=== PATIENT | male | born 1985 | race Caucasian/White ===

== ENCOUNTER 2019-04-17 22:48 | Emergency (ER) | payer SELFPAY ==
[2019-04-18] MEDS ORDERED: Cephalexin CAP* 500 MG PO ONE (01:15)
--- NOTE | 2019-04-18 01:16 | ED ---
Lower Extremity - HPI Summary HPI Summary: Pt is a 33 y/o M presenting to the ED with a chief skin complaint of his R calf. He states he had an ingrown hair that he tried to take out, but it reacted poorly and he now believes it is infected. He denies fever. He reports warmth, edema, erythema, and sensitivity to the area. NKDA. - History of Current Complaint Chief Complaint: EDExtremityLower Stated Complaint: POSS INFECTION RT LEG PER PT Time Seen by Provider: 04/18/19 01:08 Hx Obtained From: Patient Mechanism Of Injury: Unknown Onset of Pain: Hours Onset/Duration: Still Present Severity Initially: Moderate Severity Currently: Moderate Pain Intensity: 5 Pain Scale Used: 0-10 Numeric Timing: Constant, Lasting Hours Location: Is Discrete @ - R calf Character Of Pain: Burning Associated Signs And Symptoms: Positive: Swelling, Redness. Negative: Fever Aggravating Factor(s): Other - touch Alleviating Factor(s): Nothing Able to Bear Weight: Yes - Allergies/Home Medications Allergies/Adverse Reactions: Allergies Allergy/AdvReac Type Severity Reaction Status Date / Time No Known Allergies Allergy Verified 04/17/19 22:53 PMH/Surg Hx/FS Hx/Imm Hx Previously Healthy: Yes Endocrine/Hematology History: Denies: Hx Diabetes Cardiovascular History: Denies: Hx Hypertension, Hx Pacemaker/ICD History: Denies: Hx Renal Disease Sensory History: Denies: Hx Hearing Aid Psychiatric History: Denies: Hx Panic Disorder - Surgical History Surgery Procedure, Year, and Place: maxilofacial - JAW REPAIRED W/ PLATE & PIN - Rt SIDE Infectious Disease History: No Infectious Disease History: Denies: Traveled Outside the [place] in Last 30 Days - Family History Known Family History: Negative: Diabetes - Social History Alcohol Use: Daily Alcohol Amount: 3 drinks daily Hx Substance Use: Yes Substance Use Type: Reports: Marijuana Substance Use Comment - Amount & Last Used: once a week Hx Tobacco Use: Yes Smoking Status (MU): Current Some Day Smoker Review of Systems Negative: Fever Positive: Edema Positive: Other - erythema, sensitivity to R calf All Other Systems Reviewed And Are Negative: Yes Physical Exam - Summary Physical Exam Summary: Appearance: Well-appearing, Well-nourished, lying in bed comfortably Skin: Warm, dry, no obvious rash Eyes: sclera anicteric, no conjunctival pallor ENT: mucous membranes moist, pharynx appears normal Neck: Supple, nontender Respiratory: Clear to auscultation, no signs of respiratory distress Cardiovascular: Normal S1, S2. No murmurs. Normal distal pulses in tibial and radial bilaterally. Abdomen: Soft, nontender, normal active bowel sounds present Musculoskeletal: Normal, Strength/ROM Intact Neurological: A&Ox3, awake and alert, mentation is normal, speech is fluent and appropriate Psychiatric: affect is normal, does not appear anxious or depressed Triage Information Reviewed: Yes Vital Signs On Initial Exam: Initial Vitals Temp Pulse Resp BP Pulse Ox 98.1 F 94 16 143/73 98 04/17/19 22:50 04/17/19 22:50 04/17/19 22:50 04/17/19 22:50 04/17/19 22:50 Vital Signs Reviewed: Yes Diagnostics - Vital Signs Vital Signs Temp Pulse Resp BP Pulse Ox 04/17/19 22:50 98.1 F 94 16 143/73 98 - Laboratory Lab Statement: Any lab studies that have been ordered have been reviewed, and results considered in the medical decision making process. Lower Extremity Course/Dx - Course Course Of Treatment: Pt is a 33 y/o M presenting to the ED with a chief skin complaint of his R calf. He states he had an ingrown hair that he tried to take out, but it reacted poorly and he now believes it is infected. He denies fever. He reports warmth, edema, erythema, and sensitivity to the area. On exam, there is an area of erythema, edema, and induration on the R mid-lateral leg with a central small area of eschar c/w a papule that is slightly ulcerated. There is no fluctuance or lymphangitic streaking. Pt will be started on Keflex in the ED and sent home with dx of cellulitis with strict return precautions given. He is stable and agreeable with this plan. - Diagnoses Provider Diagnoses: Cellulitis Discharge ED - Sign-Out/Discharge Documenting (check all that apply): Patient Departure Patient Received Moderate/Deep Sedation with Procedure: No - Discharge Plan Condition: Good Disposition: HOME Prescriptions: Cephalexin CAP* [Keflex CAP*] 500 mg PO QID #40 cap Patient Education Materials: Cellulitis (ED) Referrals: [facility] [Outside] - 3 Days (if not starting to improve) - Billing Disposition and Condition Condition: GOOD Disposition: Home - Attestation Statements Document Initiated by Nilayibalyssa: Yes Documenting Scribe: Jesika Pat Provider For Whom Azalea is Documenting (Include Credential): Jacek Rico MD. Scribe Attestation: Jesika Downing, scribed for Jacek Rico MD. on 04/18/19 at 2156. Scribe Documentation Reviewed: Yes Provider Attestation: The documentation as recorded by the Jesika lamb accurately reflects the service I personally performed and the decisions made by me, Jacek Rico MD. Status of Scribe Document: Viewed
[2019-04-18 01:36] VITALS: BP 137/68
== END 2019-04-18 01:37 | disposition home or self-care (01) ==
LOC: ED 22:48
DX: L03.115 Cellulitis of right lower limb (principal); Z72.0 Tobacco use; L53.9 Erythematous condition, unspecified
CPT/HCPCS: 99281; A9270-GY

== ENCOUNTER 2019-04-21 17:15 | Emergency (ER) | payer SELFPAY ==
[2019-04-21 19:19] LABS: ABS Basophils 0.1 10^3/ul (0-0.2); ABS Eosinophils 0.2 10^3/ul (0-0.6); ABS Neutrophils 5.6 10^3/ul (1.5-7.7); Eosinophil % 2.5 %; Hematocrit 43 % (42-52); Hemoglobin 14.7 g/dL (14.0-18.0); Lymphocyte % 22.8 %; Mean Corpuscular HGB Conc 35 g/dL (31-36); Mean Corpuscular Hemoglobin 32 pg (27-31); Mean Corpuscular Volume 91 fL (80-94); Mean Platelet Volume 9.1 fL (7.4-10.4); Nucleated Red Blood Cells % 0.1; Platelet Count 244 10^3/uL (150-450); Red Blood Count 4.66 10^6 /uL (4.18-5.48); Red Cell Distribution Width 14 % (10-15)
[2019-04-21 19:30] LABS: Albumin 4.1 g/dL (3.2-5.2); Albumin/Globulin Ratio 1.6 (1-3); BUN/Creatinine Ratio 16.7 (8-20); C Reactive Protein 14.94 mg/L (<8.01); Calcium 9.4 mg/dL (8.6-10.3); EGFR African American 68.4 (>60); EGFR Non-African American 56.5 (>60); Globulin 2.6 g/dL (2-4); Total Bilirubin 0.3 mg/dL (0.2-1.0); Total Protein 6.7 g/dL (6.4-8.9)
[2019-04-21 19:47] LABS: Potassium 4.2 mmol/L (3.5-5.0)
[2019-04-21 20:48] LABS: Erythrocyte Sed Rate 12 mm/Hr (0-14)
--- NOTE | 2019-04-21 20:54 | ED ---
Skin Complaint - HPI Summary HPI Summary: Patient complains of redness, swelling and pain to right lateral calf 3 days. Patient was seen here 2 days ago was started on Keflex. Patient states no improvement, symptoms are getting worse. Denies fever, cough, sore throat, CP, SOB, N/V/V abdominal pain, change in urine, change in BM. Denies IV drug use. Medical history is none. - History of Current Complaint Chief Complaint: EDRashSkinAbscess Time Seen by Provider: 04/21/19 20:38 Stated Complaint: INFECTION IS GETTING WORSE PER PT Hx Obtained From: Patient Onset/Duration: Started Days Ago Skin Exposure Onset/Duration: Days Ago Timing: Constant Onset Severity: Moderate Current Severity: Mild Pain Intensity: 0 Pain Scale Used: 0-10 Numeric Skin Location: Discrete Aggravating Symptom(s): Touch Alleviating Symptom(s): Nothing Associated Signs & Symptoms: Negative - Allergy/Home Medications Allergies/Adverse Reactions: Allergies Allergy/AdvReac Type Severity Reaction Status Date / Time No Known Allergies Allergy Verified 04/17/19 22:53 PMH/Surg Hx/FS Hx/Imm Hx Endocrine/Hematology History: Denies: Hx Diabetes Cardiovascular History: Denies: Hx Hypertension, Hx Pacemaker/ICD History: Denies: Hx Dialysis, Hx Renal Disease Sensory History: Denies: Hx Hearing Aid Opthamlomology History: Denies: Hx Eye Injury EENT History: Denies: Hx Deafness Neurological History: Denies: Hx Dementia Psychiatric History: Denies: Hx Panic Disorder - Surgical History Surgery Procedure, Year, and Place: maxilofacial - JAW REPAIRED W/ PLATE & PIN - Rt SIDE Infectious Disease History: No Infectious Disease History: Denies: Traveled Outside the [place] in Last 30 Days - Family History Known Family History: Negative: Diabetes - Social History Alcohol Use: Daily Alcohol Amount: 3 drinks daily Hx Substance Use: Yes Substance Use Type: Reports: Marijuana Substance Use Comment - Amount & Last Used: once a week Hx Tobacco Use: Yes Smoking Status (MU): Current Some Day Smoker Review of Systems Constitutional: Negative Eyes: Negative ENT: Negative Cardiovascular: Negative Respiratory: Negative Gastrointestinal: Negative Genitourinary: Negative Musculoskeletal: Negative Skin: Other Neurological: Negative Psychological: Normal All Other Systems Reviewed And Are Negative: Yes Physical Exam - Summary Physical Exam Summary: Apical abscess to proximal right lateral calf distal to knee. Full range of motion of knee. Triage Information Reviewed: Yes Vital Signs On Initial Exam: Initial Vitals Temp Pulse Resp BP Pulse Ox 98.7 F 85 18 130/76 96 04/21/19 17:26 04/21/19 17:26 04/21/19 17:26 04/21/19 17:26 04/21/19 17:26 Vital Signs Reviewed: Yes Appearance: Positive: Well-Appearing Skin: Positive: Warm Head/Face: Positive: Normal Head/Face Inspection Eyes: Positive: Normal Neck: Positive: Supple Respiratory/Lung Sounds: Positive: Clear to Auscultation Cardiovascular: Positive: Normal Abdomen Description: Positive: Nontender Musculoskeletal: Positive: Normal Neurological: Positive: Normal Psychiatric: Positive: Normal AVPU Assessment: Alert - [place] Coma Scale Best Eye Response: 4 - Spontaneous Best Motor Response: 6 - Obeys Commands Best Verbal Response: 5 - Oriented Coma Scale Total: 15 Diagnostics - Vital Signs Vital Signs Temp Pulse Resp BP Pulse Ox 04/21/19 19:29 98.3 F 64 18 157/91 99 04/21/19 17:26 98.7 F 85 18 130/76 96 - Laboratory Lab Results: Lab Results 04/21/19 04/21/19 Range/Units 19:04 19:04 WBC 9.0 (3.5-10.8) 10^3/uL RBC 4.66 (4.18-5.48) 10^6 /uL Hgb 14.7 (14.0-18.0) g/dL Hct 43 (42-52) % MCV 91 (80-94) fL MCH 32 H (27-31) pg MCHC 35 (31-36) g/dL RDW 14 (10-15) % Plt Count 244 (150-450) 10^3/uL MPV 9.1 (7.4-10.4) fL Neut % (Auto) 62.6 % Lymph % (Auto) 22.8 % [place] % (Auto) 11.4 % Eos % (Auto) 2.5 % Baso % (Auto) 0.7 % Absolute Neuts (auto) 5.6 (1.5-7.7) 10^3/ul Absolute Lymphs (auto) 2.0 (1.0-4.8) 10^3/ul Absolute Monos (auto) 1.0 H (0-0.8) 10^3/ul Absolute Eos (auto) 0.2 (0-0.6) 10^3/ul Absolute Basos (auto) 0.1 (0-0.2) 10^3/ul Absolute Nucleated RBC 0.0 10^3/ul Nucleated RBC % 0.1 ESR 12 (0-14) mm/Hr Sodium 138 (135-145) mmol/L Potassium 4.2 (3.5-5.0) mmol/L Chloride 105 (101-111) mmol/L Carbon Dioxide 27 (22-32) mmol/L Anion Gap 6 (2-11) mmol/L BUN 24 (6-24) mg/dL Creatinine 1.44 H (0.67-1.17) mg/dL Est GFR ( Amer) 68.4 (>60) Est GFR (Non-Af Amer) 56.5 (>60) BUN/Creatinine Ratio 16.7 (8-20) Glucose 116 H (70-100) mg/dL Calcium 9.4 (8.6-10.3) mg/dL Total Bilirubin 0.30 (0.2-1.0) mg/dL AST 22 (13-39) U/L ALT 18 (7-52) U/L Alkaline Phosphatase 85 (34-104) U/L C-Reactive Protein 14.94 H (<8.01) mg/L Total Protein 6.7 (6.4-8.9) g/dL Albumin 4.1 (3.2-5.2) g/dL Globulin 2.6 (2-4) g/dL Albumin/Globulin Ratio 1.6 (1-3) Result Diagrams: 04/21/19 19:04 04/21/19 19:04 Lab Statement: Any lab studies that have been ordered have been reviewed, and results considered in the medical decision making process. Course/Dx - Course Course Of Treatment: Patient complains of redness, swelling and pain to right lateral calf 3 days. Patient was seen here 2 days ago was started on Keflex. Patient states no improvement, symptoms are getting worse. Denies fever, cough , sore throat, CP, SOB, N/V/V abdominal pain, change in urine, change in BM. Denies IV drug use. Medical history is none. Vital signs within normal limits. I and D performed. Wound packed. Patient started on Bactrim. - Diagnoses Provider Diagnoses: Abscess, Cellulitis Discharge ED - Sign-Out/Discharge Documenting (check all that apply): Patient Departure Patient Received Moderate/Deep Sedation with Procedure: No - Discharge Plan Condition: Stable Disposition: HOME Prescriptions: Sulfamethox/Trimethoprim DS* [Bactrim DS 800/160 TAB*] 1 tab PO BID 10 Days #20 tab Patient Education Materials: Cellulitis (ED), Abscess (ED) Referrals: No Primary Care Phys,NOPCP [Primary Care Provider] - Additional Instructions: Stop taking Keflex. Start taking Bactrim as directed. Use warm compresses to help drain abscess. Keep incision open to facilitate draining. Do not submerge underwater for 10 days. Follow-up in 2 days at primary care, urgent care or here at the ED for wound check and packing check. Return to the ED for any new or worsening symptoms. - Billing Disposition and Condition Condition: STABLE Disposition: Home - Attestation Statements Provider Attestation: I was available for consult. This patient was seen by the TRUNG. The patient was not presented to, seen by, or examined by me. Jose Daniel Moss MD
[2019-04-21] MEDS: Sulfamethox/Trimethoprim DS 800/160* TAB PO ONE (21:48)
[2019-04-21 21:54] VITALS: BP 126/77
--- NOTE | 2019-04-24 06:07 | PN ---
Progress Note - Progress Note Date of Service: 04/21/19 Note: Wound culture grew MRSA positive Pt placed on Bactrim prior to discharge Nothing further at this time.
== END 2019-04-21 21:53 | disposition home or self-care (01) ==
LOC: ED 17:15
DX: L02.415 Cutaneous abscess of right lower limb (principal); L03.115 Cellulitis of right lower limb; F17.200 Nicotine dependence, unspecified, uncomplicated
CPT/HCPCS: 10060; 36415; 80053; 85025; 85652; 86140; 87070; 87077; 87186; 87205; 87640; 87641; 99282; A9270-GY

== ENCOUNTER 2019-04-23 09:31 | Emergency (ER) | payer SELFPAY | END 2019-04-23 09:54 | disposition left against medical advice (07) | LOC: UCEAST 09:31 | DX: Z53.8 Procedure and treatment not carried out for other reasons (principal) ==